=== PATIENT | male | born 1945 | race Caucasian/White ===

== ENCOUNTER → 2022-05-08 | Outpatient (CLI) | payer MEDICARE, BC ==
--- NOTE | 2022-05-08 09:45 | CT ---
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 Coronal and sagittal reconstructions performed. CT DLP: 737.20 mGycm Automated exposure control for dose reduction was used. FINDINGS: Left anterior chest wall ICD generator with right atrial and 2 right ventricular leads. Median sterno tiara wires are present with post-CABG clips. Normal variant azygos fissure. Finding seen on the facility service associate view. There is also loss of the subacromial space on both sides suggesting cortical thickness chroni c rotator cuff tears bilaterally. Mild to moderate emphysematous change in the visualized upper lungs . Mild mucosal thickening throughout the ethmoid air cells. Incidentally, there is a 1.1 x 0.6 cm soft tissue nodule in the left paramedian region just posterior and inferior to the hyoid bone, axial image 59. Recommend reassessment in 3 months to exclude an ear ly neoplasm. Possible ectopic thyroid tissue. No craniocervical junction are mildly, predental space widening, or prevertebral soft tissue swelling . Degenerative change at the C1 dens articulation. Moderate disc/endplate degenerative changes present throughout, greatest at C6-7 where disc osteophyt e complex contributes to a moderate focal spinal canal stenosis. Multilevel advanced hypertrophic facet and uncovertebral joint arthropathy is present. Degenerative grade 1, nearly grade 2 anterolisthesis C4-C5 and grade 1 anterolisthesis C5-C6. Additio nal degenerative grade 1 anterolisthesis T2-T3. At C2-C3, mild left neuroforaminal stenosis. At C3-C4, severe right and moderate left neural foraminal stenosis. At C4-C5, moderate to severe left and moderate right neuroforaminal stenosis. At C5-C6, moderate to severe right and moderate left neuroforaminal stenosis. At C6-C7, moderate to severe right and moderate left foraminal stenosis. At C7-T1, mild to moderate left neuroforaminal stenosis. At T1-T2, moderate bilateral neural foraminal stenosis. At T2-T3, moderate left neuroforaminal stenosis.. IMPRESSION: 1. MODERATE TO ADVANCED MULTILEVEL SPONDYLOTIC CHANGE THROUGHOUT. There is a grade 1, nearly grade 2 anterolisthesis at C4-C5. Additional grade 1 anterolisthesis at C5-C6 and T2-T3. 2. Moderate focal spinal canal stenosis at C6-C7 secondary to disc osteophyte complex. 3. Variable bilateral neural foraminal stenoses as outlined above. 4. Incidental findings also mentioned including a 1.1 x 0.6 cm soft tissue nodule left paramedian asp ect just posterior and inferior to the hyoid bone. Three-month follow-up CT neck recommended to exclu de early neoplasm. Possible ectopic thyroid tissue. 5. Incidental: Chronic bilateral full-thickness rotator cuff tears and underlying emphysema.
== END | disposition home or self-care (01) ==
LOC: RADCTMAIN 08:00
PROVIDERS: ATTEND Physical Medicine & Rehabilitation
DX: M47.812 Spondylosis without myelopathy or radiculopathy, cervical region (principal); M48.02 Spinal stenosis, cervical region; M43.12 Spondylolisthesis, cervical region; M50.30 Other cervical disc degeneration, unspecified cervical region
CPT/HCPCS: 72125

== ENCOUNTER 2024-07-02 19:40 | Inpatient (IN) | payer MEDICARE, BC ==
--- NOTE | 2024-07-02 19:48 | ED ---
Chest Pain HPI - General Stated Complaint: Chest Pain Time Seen by Provider: 07/02/24 19:42 Source: RN notes reviewed, old records reviewed Mode of arrival: EMS Limitations: no limitations - History of Present Illness Initial Comments: This is a 78-year-old male with a strong cardiac history coming in for severe chest pain. Patient has history of CAD with prior stents prior CABG and comes in with left-sided chest pain tightness and heaviness today. Patient feels a little lightheaded but mainly complaining of chest pain. Patient concern for EKG and history of heart disease MD Complaint: chest pain -: hour(s) Onset: during rest, during exertion Pain Location: left chest Pain Radiation: LUE Severity: moderate Severity scale (1-10): 4 Quality: tightness, heaviness Consistency: constant Improves With: nothing Worsens With: nothing Anginal Symptoms: nausea, vomiting, sense of impending doom Other Symptoms: palpitations Treatments Prior to Arrival: none - Related Data Home Medications Medication Instructions Recorded Confirmed Apixaban [Eliquis] 5 mg PO BID 07/03/24 07/03/24 Atorvastatin [Lipitor] 40 mg PO DAILY 07/03/24 07/03/24 Clopidogrel [Plavix] 75 mg PO DAILY 07/03/24 07/03/24 Omeprazole [PriLOSEC] 20 mg PO AC-BRKFST 07/03/24 07/03/24 polyethylene glycoL 3350 [Miralax] 17 gm PO BID 07/03/24 07/03/24 Previous Rx's Medication Instructions Recorded Aspirin 81 mg PO DAILY 7 Days #7 tab 07/06/24 Folic Acid 1 mg PO DAILY@1200 #30 tab 07/06/24 Isosorbide Mononitrate ER [Imdur] 30 mg PO DAILY #30 tab 07/06/24 Metoprolol Tartrate [Lopressor] 25 mg PO DAILY #30 tab 07/06/24 Multivitamins, Thera [Multivitamin 1 each PO DAILY@1200 #30 tab 07/06/24 (formulary)] Nitroglycerin Sl Tabs [Nitrostat] 0.4 mg SUBLINGUAL Q5M PRN #20 tab 07/06/24 Thiamine [Vitamin B-1] 100 mg PO BID-W/MEALS #30 tab 07/06/24 lisinopriL [Zestril] 5 mg PO DAILY #0 07/06/24 Allergies Allergy/AdvReac Type Severity Reaction Status Date / Time No Known Allergies Allergy Verified 07/03/24 15:00 Review of Systems ROS Statement: Those systems with pertinent positive or pertinent negative responses have been documented in the HPI. ROS Other: All systems not noted in ROS Statement are negative. EKG Findings - EKG Comments: EKG Findings:: EKG is sinus 91 AK 169 QRS 114 QTc 394. Patient does have evidence of ST depression anteriorly - EKG Results: EKG: interpreted by SIERRAD General Exam General appearance: anxious Head exam: Present: atraumatic, normocephalic, normal inspection Eye exam: Present: normal appearance, PERRL, EOMI. Absent: scleral icterus, conjunctival injection, periorbital swelling ENT exam: Present: normal exam, mucous membranes moist Neck exam: Present: normal inspection. Absent: tenderness, meningismus, lymphadenopathy Respiratory exam: Present: normal lung sounds bilaterally. Absent: respiratory distress, wheezes, rales, rhonchi, stridor Cardiovascular Exam: Present: regular rate, normal rhythm, normal heart sounds. Absent: systolic murmur, diastolic murmur, rubs, gallop, clicks GI/Abdominal exam: Present: soft, normal bowel sounds. Absent: distended, tenderness, guarding, rebound, rigid Extremities exam: Present: normal inspection, full ROM, normal capillary refill. Absent: tenderness, pedal edema, joint swelling, calf tenderness Back exam: Present: normal inspection Neurological exam: Present: alert, oriented X3, CN II-XII intact Psychiatric exam: Present: normal affect, normal mood Skin exam: Present: warm, dry, intact, normal color. Absent: rash Course Vital Signs 07/02/24 07/02/24 07/02/24 19:44 21:00 21:15 Temperature 97.8 F Pulse Rate 93 76 75 Pulse Rate [ Tuber Machine Operator Helper ] Respiratory 16 13 14 Rate Blood Pressure 174/79 123/69 111/66 O2 Sat by Pulse 98 97 96 Oximetry 07/02/24 07/02/24 07/02/24 21:30 21:45 22:00 Temperature Pulse Rate 75 77 73 Pulse Rate [ Tuber Machine Operator Helper ] Respiratory 13 14 16 Rate Blood Pressure 103/51 105/79 105/57 O2 Sat by Pulse 96 97 Oximetry 07/03/24 07/03/24 07/03/24 02:00 06:00 07:32 Temperature Pulse Rate 77 72 Pulse Rate [ 78 Tuber Machine Operator Helper ] Respiratory 13 16 Rate Blood Pressure 121/67 135/69 O2 Sat by Pulse 97 96 Oximetry 07/03/24 07/03/24 07/03/24 09:03 13:00 17:02 Temperature 97.8 F Pulse Rate 85 72 85 Pulse Rate [ Tuber Machine Operator Helper ] Respiratory 18 18 18 Rate Blood Pressure 146/82 129/59 139/70 O2 Sat by Pulse 98 96 97 Oximetry 07/03/24 07/03/24 07/04/24 20:00 22:13 02:35 Temperature Pulse Rate 80 80 73 Pulse Rate [ Tuber Machine Operator Helper ] Respiratory 17 18 17 Rate Blood Pressure 147/82 130/69 134/69 O2 Sat by Pulse 98 96 95 Oximetry 07/04/24 07/04/24 07/04/24 05:41 11:30 15:54 Temperature 97.9 F 97.9 F Pulse Rate 73 63 76 Pulse Rate [ Tuber Machine Operator Helper ] Respiratory 16 15 17 Rate Blood Pressure 125/68 110/56 127/84 O2 Sat by Pulse 99 97 Oximetry 07/04/24 07/05/24 07/05/24 18:12 00:36 02:00 Temperature 98.2 F Pulse Rate 74 70 71 Pulse Rate [ Tuber Machine Operator Helper ] Respiratory 15 18 18 Rate Blood Pressure 121/61 150/75 133/65 O2 Sat by Pulse 96 97 95 Oximetry 07/05/24 07/05/24 07/05/24 04:00 06:05 07:34 Temperature Pulse Rate 68 78 72 Pulse Rate [ Tuber Machine Operator Helper ] Respiratory 18 18 12 Rate Blood Pressure 155/71 175/79 157/81 O2 Sat by Pulse 95 98 100 Oximetry - Reevaluation(s) Reevaluation #1: 07/02/24 21:14 Medical records reviewed Reevaluation #2: 07/02/24 21:14 Patient symptoms unchanged Patient still with chest pain Reevaluation #3: 07/02/24 21:14 Patient informed of results questions answered Reevaluation #4: Was pt. sent in by a medical professional or institution (, PA, VERMIN EXTERMINATOR, urgent care, hospital, or penitentiary...) When possible be specific @ -no Did you speak to anyone other than the patient for history (EMS, parent, family, police, friend...)? What history was obtained from this source @ -no Did you review nursing and triage notes (agree or disagree)? Why? @ -agree Are old charts reviewed (outside hosp., previous admission, EMS record, old EKG, old radiological studies, urgent care reports/EKG's, penitentiary records)? Report findings @ -yes Differential Diagnosis (chest pain, altered mental status, abdominal pain women, abdominal pain men, vaginal bleeding, weakness, fever, dyspnea, syncope, headache, dizziness, GI bleed, back pain, seizure, CVA, palpatations, mental health, musculoskeletal)? @ -prior EKG interpreted by me (3pts min.). @ -yes X-rays interpreted by me (1pt min.). @ -yes negative for acute disease CT interpreted by me (1pt min.). @ -no U/S interpreted by me (1pt. min.). @ -no What testing was considered but not performed or refused? (CT, X-rays, U/S, labs)? Why? @ -none What meds were considered but not given or refused? Why? @ -none Did you discuss the management of the patient with other professionals (professionals i.e. , PA, VERMIN EXTERMINATOR, lab, RT, psych nurse, social science research assistant, face and fill packer, teacher, special weapons and tactics officer, lead case manager)? Give summary @ -no Was smoking cessation discussed for >3mins.? @ -no Was critical care preformed (if so, how long)? @ -yes31 Were there social determinants of health that impacted care today? How? (Homelessness, low income, unemployed, alcoholism, drug addiction, transportation, low edu. Level, literacy, decrease access to med. care, halfway, rehab)? @ -none Was there de-escalation of care discussed even if they declined (Discuss DNR or withdrawal of care, Hospice)? DNR status @ -no What co-morbidities impacted this encounter? (DM, HTN, Smoking, COPD, CAD, Cancer, CVA, ARF, Chemo, Hep., AIDS, mental health diagnosis, sleep apnea, morbid obesity)? @ -none Was patient admitted / discharged? Hospital course, mention meds given and route, prescriptions, significant lab abnormalities, going to OR and other pertinent info. @ - 78 male to ER for evaluation of chest pain positive troponin non-ST elevated AZ on heparin and aspirin, patient admit for cardiac evaluation and treatment Admitted Undiagnosed new problem with uncertain prognosis? @ -no Drug Therapy requiring intensive monitoring for toxicity (Heparin, Nitro, Insulin, Cardizem)? @ -no Were any procedures done? @ -no Diagnosis/symptom? @ -Chest pain non-ST elevated AZ Acute, or Chronic, or Acute on Chronic? @ -Acute Uncomplicated (without systemic symptoms) or Complicated (systemic symptoms)? @ -Complicated Side effects of treatment? @ -no Exacerbation, Progression, or Severe Exacerbation? @ -exacerbation Poses a threat to life or bodily function? How? (Chest pain, [place], [place], pneumonia, PE, COPD, DKA, ARF, appy, cholecystitis, CVA, Diverticulitis, Homicidal, Suicidal, threat to staff... and all critical care pts) @ -yes with chest pain extremes of age Reevaluation #5: Differential Chest Pain: Stable Angina, Unstable Angina, STEMI, NSTEMI Aortic Dissection, Pneumothorax, Musculoskeletal, Esophageal Spasm GERD, Cholecystitis, Pancreatitis, Zoster, this is not meant to be an all-inclusive list. - Consultations Consultation #1: Spoke with EM who agrees to admit this patient Consultation #2: Spoke with cardiology aware of this patient Chest Pain MDM - MDM 78 male to ER for evaluation of chest pain positive troponin non-ST elevated AZ on heparin and aspirin, patient admit for cardiac evaluation and treatment Critical Care Time Critical Care Time: Yes Total Critical Care Time: 31 Disposition Clinical Impression: Acute non-ST elevation myocardial infarction (NSTEMI), Chest pain, Unstable angina pectoris Disposition: ADMITTED IP TO THIS HOSP Condition: Serious Is patient prescribed a controlled substance at d/c from ED?: No Time of Disposition: 21:00
[2024-07-02] MEDS: NITROGLYCERIN SL TABS 0.4 MG TAB SUBLINGUAL STA (19:54)
[2024-07-02] MEDS: NITROGLYCERIN OINT 1 INCH/GM PACKET TOPICAL STA (19:54)
[2024-07-02] MEDS: SODIUM CHLORIDE 0.9% 500 ML 500 ML IV STA (20:00)
[2024-07-02 20:03] LABS: Basophils % (A) 0 %; Eosinophils # (A) 0.1 k/uL (0-0.7); Eosinophils % (A) 2 %; HCT 41.7 % (39.0-53.0); HGB 13.5 gm/dL (13.0-17.5); Lymphocytes # (A) 1.1 k/uL (1.0-4.8); Lymphocytes % (A) 14 %; MCH 27.7 pg (25.0-35.0); MCHC 32.3 g/dL (31.0-37.0); MCV 85.7 fL (80.0-100.0); Mean Platelet Volume 8.8; Monocytes # (A) 0.4 k/uL (0-1.0); Monocytes % (A) 5 %; Neutrophils # (A) 6.2 k/uL (1.3-7.7); Neutrophils % (A) 78 %; Platelet Count 160 k/uL (150-450); RBC 4.87 m/uL (4.30-5.90); RDW 14.1 % (11.5-15.5); WBC 7.9 k/uL (3.8-10.6)
[2024-07-02 20:14] LABS: INR 1.1 (<1.2); Partial Thromboplastin Time 26.1 sec (22.0-30.0); Prothrombin Time 12.4 sec (10.0-12.5)
[2024-07-02 20:19] LABS: ALT 23 U/L (4-49); AST 76 U/L (17-59); African American GFR (CKD) 66 (>60 ml/min/1.73 sqM); Alkaline Phosphatase 92 U/L (38-126); Anion Gap 9 mmol/L; Blood Urea Nitrogen 19 mg/dL (9-20); Calcium 8.7 mg/dL (8.4-10.2); Carbon Dioxide 24 mmol/L (22-30); Chloride 100 mmol/L (98-107); Glucose 110 mg/dL (74-99); Lipase 58 U/L (23-300); Non-African American GFR(CKD) 57 (>60 ml/min/1.73 sqM); Potassium 4.2 mmol/L (3.5-5.1); Sodium 133 mmol/L (137-145); Total Bilirubin 1.1 mg/dL (0.2-1.3); Total Protein 6.8 g/dL (6.3-8.2)
[2024-07-02 20:27] LABS: NT-Pro-B-Type Natriuretic Pept 1670 pg/mL
[2024-07-02] MEDS: HEPARIN SOD,PORK IN 0.45% NACL 25,000 UNIT in 0.45% NACL 1 250ML.BAG IV SCH (20:58)
[2024-07-02] MEDS: HEPARIN SODIUM 1,000 UN/ML (10ML VL) IV ONE (20:59)
--- NOTE | 2024-07-02 21:03 | XR ---
EXAMINATION TYPE: XR chest 1V portable DATE OF EXAM: 07/02/2024 8:48 PM COMPARISON: None CLINICAL INDICATION: Male, 78 years old with history of chest pain; [facility] TECHNIQUE: XR chest 1V portable Frontal view of the chest. FINDINGS: Lungs/Pleura: There is no evidence of pleural effusion, focal consolidation, or pneumothorax. Pulmonary vascularity: Unremarkable. Heart/mediastinum: Cardiomediastinal silhouette is prominent in size. 4 lead cardiac conduction devic e overlying the left hemithorax with lead tips projecting over the right ventricle, right atrium and coronary sinus. Musculoskeletal: No acute osseous pathology. Midline sternotomy wires are noted. IMPRESSION: Low lung volumes with a generalized hazy appearance which could represent atelectasis versus pulmonar y edema correlate with serum BNP. [facility], , 07/02/2024 9:01 PM
[2024-07-02] MEDS ORDERED: MORPHINE SULFATE 4 MG/ML SYRINGE IV PRN (21:24)
[2024-07-02] MEDS ORDERED: NITROGLYCERIN SL TABS 0.4 MG TAB SUBLINGUAL PRN (21:24)
[2024-07-02] MEDS: ASPIRIN 81 MG PO STA (21:27)
[2024-07-02] MEDS: NITROGLYCERIN-D5W PMX 50 MG in DEXTROSE/WATER 1 250ML.BAG IV ONE (21:28)
[2024-07-03 03:13] LABS: Basophils % (A) 0 %; Eosinophils # (A) 0.1 k/uL (0-0.7); Eosinophils % (A) 2 %; HCT 35.8 % (39.0-53.0); HGB 12.2 gm/dL (13.0-17.5); Lymphocytes # (A) 1.4 k/uL (1.0-4.8); Lymphocytes % (A) 22 %; MCH 28.9 pg (25.0-35.0); MCV 84.8 fL (80.0-100.0); Monocytes # (A) 0.5 k/uL (0-1.0); Monocytes % (A) 7 %; Neutrophils # (A) 4.3 k/uL (1.3-7.7); Neutrophils % (A) 68 %; Platelet Count 156 k/uL (150-450); RBC 4.23 m/uL (4.30-5.90); RDW 14.1 % (11.5-15.5); WBC 6.3 k/uL (3.8-10.6)
[2024-07-03 03:17] LABS: INR 1.2 (<1.2); Prothrombin Time 12.5 sec (10.0-12.5)
[2024-07-03] MEDS: METOPROLOL TARTRATE 25 MG TAB PO SCH (08:59)
[2024-07-03] MEDS: ATORVASTATIN 80 MG TAB PO SCH (08:59)
[2024-07-03] MEDS ORDERED: ASPIRIN 325 MG TAB PO SCH (09:00)
[2024-07-03] MEDS: ASPIRIN 81 MG PO SCH (09:02)
[2024-07-03 10:41] LABS: Chol/HDL Ratio 2.43 Ratio; LDL Cholesterol,Calculated 55.4 mg/dL (0.0-131.0); VLDL Calculation 7.48 mg/dL (5.00-40.00)
[2024-07-03] MEDS ORDERED: NITROGLYCERIN SL TABS 0.4 MG TAB SUBLINGUAL PRN (12:27)
--- NOTE | 2024-07-03 12:30 | P.CRDCN ---
History of Present Illness History of present illness: HISTORY OF PRESENT ILLNESS: This is a 78-year-old male with a past medical history significant for artery disease with previous CABG x 2 in [place], hypertension, and hyperlipidemia. Patient follows a human resources operations specialist in [place]. We have been asked to see the patient in consultation for chest pain. Patient examined at the bedside in the emergency room. Patient presented to the hospital with a chief complaint of chest pain. Patient states the pain was in the middle of his chest. He denied any radiation of the pain. He denied any nausea or vomiting. Denies dizziness or lightheadedness. Patient was found to have elevated troponins and was started on IV heparin and IV nitro. DIAGNOSTICS: - EKG reveals sinus mechanism with incomplete right bundle branch block. - Chest xray low lung volumes with generalized hazy appearance which could represent atelectasis versus pulmonary edema. - Laboratory data: WBC 6.3. Hemoglobin 12.2. Platelet count 156. Sodium 133. Potassium 4.2. BUN 19. Creatinine 1.20. Magnesium 2.0. Troponin 4.390. 5.200. 6.320. proBNP 1670. - Current home cardiac medication list is not updated at the time of examination - No previous echocardiogram, stress test, or cardiac catheterization available in EMR for review REVIEW OF SYSTEMS: At the time of my exam: CONSTITUTIONAL: Denies fever or chills. HEENT: Denies blurred vision, vision changes, or eye pain. Denies hemoptysis CARDIOVASCULAR: Denies chest pain. Denies orthopnea. Denies PND. Denies palpitations RESPIRATORY: Denies shortness of breath. GASTROINTESTINAL: Denies abdominal pain. Denies nausea or vomiting. HEMATOLOGIC: Denies bleeding disorders. GENITOURINARY: Denies any blood in urine. SKIN: Denies pruitis. Denies rash. PHYSICAL EXAM: VITAL SIGNS: Reviewed. GENERAL: Well-developed in no acute distress. HEENT: Head is normocephalic. Pupils are equal, round. Sclerae anicteric. Mucous membranes of the mouth are moist. Neck supple. No JVD or thyromegaly LUNGS: Respirations even and unlabored. Lungs essentially clear to auscultation bilaterally. HEART: Regular rate and rhythm. S1 and S2 heard. ABDOMEN: Soft. Nondistended. Nontender. EXTREMITIES: Normal range of motion. No clubbing or cyanosis. Peripheral pulses intact. No lower extremity edema NEUROLOGIC: Awake and alert. Oriented x 3. ASSESSMENT: NSTEMI Coronary artery disease with previous CABG x , 1993 and approximately 2007 Hypertension Hyperlipidemia PLAN: Obtain 2D echo to assess cardiac structure and function Continue IV heparin Discontinue IV nitro. Begin nitro paste Continue additional cardiac medications Obtain records from patient's previous open heart surgery N.p.o. at midnight Patient to undergo cardiac catheterization tomorrow with Dr. Cole Further recommendations pending patient course Nurse practitioner note has been reviewed by physician. Signing provider agrees with the documented findings, assessment, and plan of care documented by MARKETING RECRUITER as a scribe. Past Medical History Past Medical History: Chest Pain / Angina, Heart Failure, Hyperlipidemia, Hypertension, Myocardial Infarction ([place]) History of Any Multi-Drug Resistant Organisms: None Reported Past Surgical History: Coronary Bypass/CABG, Heart Catheterization With Stent Additional Past Surgical History / Comment(s): defibrilator Past Psychological History: No Psychological Hx Reported Smoking Status: Never smoker Past Alcohol Use History: Daily Past Drug Use History: None Reported Medications and Allergies Allergies Allergy/AdvReac Type Severity Reaction Status Date / Time No Known Allergies Allergy Verified 07/02/24 19:43 Physical Exam Vitals: Vital Signs Temp Pulse Pulse Resp BP Pulse Ox 07/03/24 07:32 78 07/03/24 06:00 72 16 135/69 96 07/03/24 02:00 77 13 121/67 97 07/02/24 22:00 73 16 105/57 07/02/24 21:45 77 14 105/79 97 07/02/24 21:30 75 13 103/51 96 07/02/24 21:15 75 14 111/66 96 07/02/24 21:00 76 13 123/69 97 07/02/24 19:44 97.8 F 93 16 174/79 98 Intake and Output 07/02/24 07/03/24 07/03/24 22:59 06:59 14:59 Intake Total 103.747 Balance 103.747 Intake: Intake, IV Titration 103.747 Amount Heparin Sod,Pork in 0.45% 103.747 NaCl 25,000 unit In 0.45 % NaCl 1 250ml.bag @ 9.3 UNITS/KG/HR 10.04 mls/hr IV .Q24H [facility] Rx#: [id number] Other: Weight 107.955 kg Results 07/03/24 02:55 07/02/24 19:44 Cardiac Enzymes 07/02/24 07/02/24 07/02/24 Range/Units 19:44 19:44 22:42 AST 76 H (17-59) U/L Troponin I 4.390 H* 5.200 H* (0.000-0.034) ng/mL 07/03/24 Range/Units 02:55 AST (17-59) U/L Troponin I 6.320 H* (0.000-0.034) ng/mL Coagulation 07/02/24 07/03/24 07/03/24 Range/Units 19:44 02:55 02:55 PT 12.4 12.5 (10.0-12.5) sec APTT 26.1 82.8 H (22.0-30.0) sec CBC 07/02/24 07/03/24 Range/Units 19:44 02:55 WBC 7.9 6.3 (3.8-10.6) k/uL RBC 4.87 4.23 L (4.30-5.90) m/uL Hgb 13.5 12.2 L (13.0-17.5) gm/dL Hct 41.7 35.8 L (39.0-53.0) % Plt Count 160 156 (150-450) k/uL Comprehensive Metabolic Panel 07/02/24 Range/Units 19:44 Sodium 133 L (137-145) mmol/L Potassium 4.2 (3.5-5.1) mmol/L Chloride 100 (98-107) mmol/L Carbon Dioxide 24 (22-30) mmol/L BUN 19 (9-20) mg/dL Creatinine 1.20 (0.66-1.25) mg/dL Glucose 110 H (74-99) mg/dL Calcium 8.7 (8.4-10.2) mg/dL AST 76 H (17-59) U/L ALT 23 (4-49) U/L Alkaline Phosphatase 92 (38-126) U/L Total Protein 6.8 (6.3-8.2) g/dL Albumin 4.0 (3.5-5.0) g/dL Current Medications Generic Name Dose Route Start Last Admin Trade Name Freq PRN Reason Stop Dose Admin Aspirin 325 mg 07/03/24 09:00 Aspirin 325 Mg Tab PO DAILY [facility] Atorvastatin Calcium 80 mg 07/03/24 09:00 Atorvastatin 80 Mg Tab PO DAILY [facility] Heparin Sodium (Porcine) 0 unit 07/02/24 20:41 Heparin Sodium 1,000 Un/Ml (10ml Vl) IV PER PROTOCOL PRN Low PTT Protocol Heparin Sodium/Sodium Chloride 250 mls @ 10.04 mls/hr 07/02/24 20:45 07/03/24 07:18 25,000 unit/ Sodium Chloride IV 7.3 units/kg/hr .Q24H [facility] 7.881 mls/hr Titration Protocol 9.3 UNITS/KG/HR Nitroglycerin/Dextrose 50 mg/ 250 mls @ 1.5 mls/hr 07/02/24 21:08 07/02/24 21:28 IV Solution IV 07/03/24 21:07 5 mcg/min .Q24H ONE 1.5 mls/hr Administration Protocol 5 MCG/MIN Metoprolol Tartrate 25 mg 07/03/24 09:00 Metoprolol Tartrate 25 Mg Tab PO BID [facility] Morphine Sulfate 4 mg 07/02/24 21:24 Morphine Sulfate 4 Mg/Ml Syringe IV Q4HR PRN Chest Pain Nitroglycerin 0.4 mg 07/02/24 21:24 Nitroglycerin Sl Tabs 0.4 Mg Tab SUBLINGUAL Q5M PRN Chest Pain Intake and Output 07/02/24 07/03/24 07/03/24 22:59 06:59 14:59 Intake Total 103.747 Balance 103.747 Intake: Intake, IV Titration 103.747 Amount Heparin Sod,Pork in 0.45% 103.747 NaCl 25,000 unit In 0.45 % NaCl 1 250ml.bag @ 9.3 UNITS/KG/HR 10.04 mls/hr IV .Q24H [facility] Rx#: [id number] Other: Weight 107.955 kg 07/03/24 02:55 07/02/24 19:44
[2024-07-03] MEDS: NITROGLYCERIN OINT 1 INCH/GM PACKET TOPICAL SCH (12:33)
--- NOTE | 2024-07-03 17:01 | CA ---
Transthoracic Echo Report Name: Shaheen Mireles Age: 78 Gender: M : 1945 Exam Date: 07/03/2024 11:31 Exam Location: [place] [facility] Ht (in): 74 Wt (lb): 238 Ordering Physician: Antwon Renee DO Attending/Referring Phys: [id number], Thelma Test Borer Karin Man RDCS Procedure CPT: Indications: elevTrop Cardiac Hx: AICD Technical Quality: Technically difficult study Contrast 1: Total Dose (mL): Contrast 2: Total Dose (mL): MEASUREMENTS (Male / Female) Normal Values 2D ECHO LV Diastolic Diameter PLAX 4.8 cm 4.2 - 5.9 / 3.9 - 5.3 cm LV Systolic Diameter PLAX 3.3 cm IVS Diastolic Thickness 1.1 cm 0.6 - 1.0 / 0.6 - 0.9 cm LVPW Diastolic Thickness 1.2 cm 0.6 - 1.0 / 0.6 - 0.9 cm LV Relative Wall Thickness 0.5 RV Internal Dim ED PLAX 3.9 cm LA Systolic Diameter LX 5.0 cm 3.0 - 4.0 / 2.7 - 3.8 cm LA Volume 112.7 cm??? 18 - 58 / 22 - 52 cm??? LA Volume Index 47.0 cm???/m??? 16 - 28 cm???/m??? M-MODE Aortic Root Diameter MM 3.1 cm DOPPLER AV Peak Velocity 224.2 cm/s AV Peak Gradient 20.1 mmHg AV Mean Velocity 156.8 cm/s AV Mean Gradient 10.8 mmHg AV Velocity Time Integral 53.9 cm AI Peak Velocity 419.5 cm/s AI Peak Gradient 70.4 mmHg AI Pressure Half Time 336.6 ms LVOT Peak Velocity 102.8 cm/s LVOT Peak Gradient 4.2 mmHg LVOT Velocity Time Integral 23.6 cm MV Area PHT 2.8 cm??? Mitral E Point Velocity 100.5 cm/s Mitral A Point Velocity 58.8 cm/s Mitral E to A Ratio 1.7 MV Deceleration Time 269.7 ms TR Peak Velocity 283.5 cm/s TR Peak Gradient 32.1 mmHg Right Ventricular Systolic Press 36.0 mmHg FINDINGS Left Ventricle Left ventricular ejection fraction is estimated at 35 %. Left ventricular cavity size normal. Left ventricular wall thickness normal. Baasel inferior akinesis. Basel septum akinesis Right Ventricle Moderate right ventricular dilatation. Mild pulmonary hypertension. Reduced right ventricular global systolic function. Right Atrium Normal right atrial size. No right atrial thrombus or mass seen. Left Atrium Moderately increased left atrial diameter. Severely increased left atrial volume. Moderately increased left atrial area. No left atrial thrombus or mass present. Mitral Valve Structurally normal mitral valve. Trace to mild mitral regurgitation. Mitral annular calcification. Aortic Valve Aortic valve sclerosis. Mild aortic stenosis with a peak gradient of 20 mmHg and a mean gradient of 11 mmHg. Mild aortic regurgitation. Tricuspid Valve Structurally normal tricuspid valve. Mild tricuspid regurgitation. Pulmonic Valve Pulmonic valve not well visualized. Pericardium No pericardial effusion. Aorta Normal size aortic root and proximal ascending aorta. CONCLUSIONS Left ventricular ejection fraction 35% with inferior, inferior lateral, basal septal akinesis RVSP 36 Moderately dilated left atrium Trace to mild mitral regurgitation Mild aortic stenosis Mild tricuspid regurgitation Previewed by: Dr. Jasen Wong DO (Electronically Signed) Final Date: 03 July 2024 17:01
[2024-07-03] MEDS: polyethylene glycoL 3350 17 GM POWD.PACK PO SCH (20:28)
--- NOTE | 2024-07-04 00:08 | HP ---
HISTORY AND PHYSICAL CHIEF COMPLAINT: Chest pain. HISTORY OF PRESENT ILLNESS: This is a 78-year-old gentleman with a past medical history of CAD, CABG, extensive cardiac history, multiple caths, being followed by Dr. 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 The initial EKG showed some ST depressions. The lab work showed troponin elevated up to 6.320 indicating acute ogw-YS-htxuxli elevation myocardial infarction and the patient was also seen by Cardiology and the patient is being closely monitored. There is no history of any fever, rigors, or chills at this time. PAST MEDICAL HISTORY: History of CAD, CABG, history of CHF, hypertension, hyperlipidemia, history of chest pain, stent. Rest of the history and rest of the chart is also reviewed. ALLERGIES: None. FAMILY HISTORY: No history of heart disease or strokes in the family. SOCIAL HISTORY: Daily alcohol. No history of smoking. REVIEW OF SYSTEMS: Fourteen-point review of systems is negative except as mentioned earlier. PHYSICAL EXAMINATION: VITAL SIGNS: Pulse 85, blood pressure 143/84, respirations 18. HEENT: Conjunctivae normal. NECK: No JVD. CARDIOVASCULAR: S1, S2. RESPIRATIONS: Breath sounds diminished at the bases. No rhonchi. No crackles. ABDOMEN: Soft, nontender. LEGS: No edema. NERVOUS SYSTEM: Nonfocal. LABORATORY STUDIES: Hemoglobin 12.2. Rest of the labs are noted. ASSESSMENT: 1. Chest pain, possible acute pco-KJ-yebprug elevation myocardial infarction. 2. Troponin elevated up to 6.320. 3. History of coronary artery disease, coronary artery bypass graft stents. 4. Hypertension. 5. Hyperlipidemia. 6. History of congestive heart failure. RECOMMENDATIONS AND DISCUSSION: This is a 78-year-old gentleman, who presented with multiple complex medical issues, we will monitor the patient closely. Continue with antiplatelet agents. Continue with IV heparin. 2D echo with Doppler, beta blockers. Closely follow with Cardiology. Resume the home medications. Guarded prognosis. Further recommendations to follow. N.p.o. and possible cardiac cath tomorrow per Cardiology. MMODL / IJN: [id number] /
[2024-07-04] MEDS: ATORVASTATIN 80 MG TAB PO ONE (05:32)
[2024-07-04] MEDS: ASPIRIN 325 MG TAB PO ONE (05:32)
[2024-07-04] MEDS: ALPRAZolam 0.25 MG TAB PO PRN (05:32)
[2024-07-04] MEDS ORDERED: HEPARIN SODIUM,PORCINE (1 ML) 2,500 UNIT in SODIUM CHLORIDE 0.9% 250 ML IRRIGATION PRN (07:00)
[2024-07-04] MEDS ORDERED: HEPARIN SODIUM,PORCINE 10,000 UNIT in SODIUM CHLORIDE 0.9% 1,000 ML IRRIGATION PRN (07:00)
[2024-07-04] MEDS: lisinopriL 10 MG TAB PO SCH (09:52)
--- NOTE | 2024-07-04 11:46 | P.PN ---
Subjective HISTORY OF PRESENT ILLNESS: This is a 78-year-old male with a past medical history significant for artery disease with previous CABG x 2 in [place], hypertension, and hyperlipidemia. 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 We have been asked to see the patient in consultation for chest pain. Patient examined at the bedside in the emergency room. Patient presented to the hospital with a chief complaint of chest pain. Patient states the pain was in the middle of his chest. He denied any radiation of the pain. He denied any nausea or vomiting. Denies dizziness or lightheadedness. Patient was found to have elevated troponins and was started on IV heparin and IV nitro. DIAGNOSTICS: - EKG reveals sinus mechanism with incomplete right bundle branch block. - Chest xray low lung volumes with generalized hazy appearance which could r epresent atelectasis versus pulmonary edema. - Laboratory data: WBC 6.3. Hemoglobin 12.2. Platelet count 156. Sodium 133. Potassium 4.2. BUN 19. Creatinine 1.20. Magnesium 2.0. Troponin 4.390. 5.200. 6.320. proBNP 1670. - Current home cardiac medication list is not updated at the time of examination - No previous echocardiogram, stress test, or cardiac catheterization available in EMR for review 07/04/2024 Patient examined this morning at the bedside in the emergency room. Patient is confused this morning and does have a drug safety specialist at the bedside. Patient was not confused yesterday when we evaluated him. He denies any chest pain or shortness of breath. Echocardiogram completed revealing ejection fraction 35% with basal inferior akinesis and basal septal akinesis. The patient does report daily alcohol use of 1-2 drinks per day. Records obtained from patient's previous laboratory mechanic helper, Dr. Ferreira in [place]. Patient underwent cardiac catheterization in 2016. Findings included left main normal. Right dominant coronary circulation. LDA 100% occluded proximally. Left circumflex is without significant disease. First marginal branch is occluded. Right coronary is 100% occluded proximally. Left ventricular function is mildly impaired with ejection fraction 50%. Left ventricular inferior wall is severely hypokinetic. LV EDP 11. His vein bypass graft to LAD is patent. 0% narrowing of this graft. The proximately placed stent is patent without restenosis. Vein graft to first marginal branch circumflex is patent with a 30 to 40% ostial/proximal narrowing with in-stent restenosis and 50% mid narrowing. PHYSICAL EXAM: VITAL SIGNS: Reviewed. GENERAL: Well-developed in no acute distress. HEENT: Head is normocephalic. Pupils are equal, round. Sclerae anicteric. Mucous membranes of the mouth are moist. Neck supple. No JVD or thyromegaly LUNGS: Respirations even and unlabored. Lungs essentially clear to auscultation bilaterally. HEART: Regular rate and rhythm. S1 and S2 heard. ABDOMEN: Soft. Nondistended. Nontender. EXTREMITIES: Normal range of motion. No clubbing or cyanosis. Peripheral pulses intact. No lower extremity edema NEUROLOGIC: Awake and alert. Oriented x 3. ASSESSMENT: NSTEMI Coronary artery disease with previous CABG x 1993 and approximately 2007 Altered mental status Ischemic cardiomyopathy, ejection fraction 35%. Hypertension Hyperlipidemia Daily alcohol use PLAN: Continue IV heparin Continue additional cardiac medications Due to patient's new confusion, cardiac catheterization will be canceled for today. Primary medicine to further investigate altered mental status Patient to undergo cardiac catheterization when he is medically stable Further recommendations pending patient course Nurse practitioner note has been reviewed by physician. Signing provider agrees with the documented findings, assessment, and plan of care documented by WEBSPHERE PORTAL ARCHITECT as a scribe. Objective - Vital Signs Vital signs: Vital Signs Temp 97.8 F 07/03/24 09:03 Pulse 73 07/04/24 05:41 Resp 16 07/04/24 05:41 BP 125/68 07/04/24 05:41 Pulse Ox 95 07/04/24 02:35 FiO2 Intake & Output 07/03/24 07/04/24 07/04/24 18:59 06:59 18:59 Intake Total 103.747 98.907 Balance 103.747 98.907 Weight 107.955 kg Intake: Intake, IV Titration 103.747 98.907 Amount Heparin Sod,Pork in 0.45% 103.747 98.907 NaCl 25,000 unit In 0.45 % NaCl 1 250ml.bag @ 9.3 UNITS/KG/HR 10.04 mls/hr IV .Q24H [facility] Rx#: [id number] - Labs CBC & Chem 7: 07/03/24 02:55 07/02/24 19:44 Labs: Abnormal Lab Results - Last 24 Hours (Table) 01/20/25 Range/Units 13:13 APTT 45.8 H (22.0-30.0) sec
[2024-07-04 12:19] LABS: Basophils % (A) 0 %; Eosinophils # (A) 0.1 k/uL (0-0.7); Eosinophils % (A) 2 %; HCT 37.7 % (39.0-53.0); HGB 12.4 gm/dL (13.0-17.5); Lymphocytes # (A) 0.9 k/uL (1.0-4.8); Lymphocytes % (A) 14 %; MCH 28.7 pg (25.0-35.0); MCV 86.8 fL (80.0-100.0); Mean Platelet Volume 9.1; Monocytes # (A) 0.5 k/uL (0-1.0); Monocytes % (A) 7 %; Neutrophils # (A) 5.1 k/uL (1.3-7.7); Neutrophils % (A) 76 %; Platelet Count 150 k/uL (150-450); RBC 4.34 m/uL (4.30-5.90); RDW 14.2 % (11.5-15.5); WBC 6.7 k/uL (3.8-10.6)
[2024-07-04 12:48] LABS: African American GFR (CKD) >90 (>60 ml/min/1.73 sqM); Anion Gap 7 mmol/L; Blood Urea Nitrogen 13 mg/dL (9-20); Calcium 8.7 mg/dL (8.4-10.2); Carbon Dioxide 22 mmol/L (22-30); Chloride 101 mmol/L (98-107); Glucose 98 mg/dL (74-99); Non-African American GFR(CKD) 84 (>60 ml/min/1.73 sqM); Potassium 4.1 mmol/L (3.5-5.1); Sodium 130 mmol/L (137-145)
--- NOTE | 2024-07-04 15:16 | CT ---
EXAMINATION TYPE: CT brain wo con DATE OF EXAM: 07/04/2024 2:57 PM COMPARISON: None. CLINICAL INDICATION: Male, 78 years old with history of ams, ams TECHNIQUE: CT of the brain is performed utilizing 3 mm thick sections through the posterior fossa and 3 mm thick sections through the remaining calvarium. Study is performed within 24 hours of arrival to the hospital. Contrast used: mL of , (none if empty) CT DLP: 1168.8 mGycm, Automated exposure control for dose reduction was used. FINDINGS: No abnormal hyperdensity is present to suggest an acute intracranial hemorrhage. No mass lesion is evident. No acute infarcts are evident. Mild periventricular white matter hypodensity is present, likely on th e basis of chronic white matter ischemic changes. Ventricles and sulci are appropriate for the patient age. Paranasal sinuses and mastoid air cells within the bbbxu-wn-qrop are clear. IMPRESSION: 1. No acute intracranial process. Follow up MRI can be performed as clinically indicated. 2. Mild chronic appearing periventricular white matter ischemic change. [facility], , 07/04/2024 3:13 PM
[2024-07-04] MEDS: HEPARIN SODIUM 1,000 UN/ML (10ML VL) IV PRN (15:49)
[2024-07-04] MEDS ORDERED: HALOPERIDOL LACTATE 5 MG/ML 1 ML VIAL IVP PRN (16:21)
[2024-07-04] MEDS: THIAMINE 100 MG TAB PO SCH (18:25)
[2024-07-04 18:37] LABS: Appearance,Urine Clear (Clear); Bilirubin,Urine Negative (Negative); Blood,Urine Negative (Negative); Color,Urine Light Yellow; Glucose,Urine (UA) Negative (Negative); Ketones,Urine Negative (Negative); Leukocyte Esterase,Urine Negative (Negative); Nitrite,Urine Negative (Negative); PH, Urine 6.5 (5.0-8.0); Protein,Urine Negative (Negative); Specific Gravity,Urine 1.009 (1.001-1.035)
[2024-07-04] MEDS: QUEtiapine 25 MG TAB PO SCH (20:40)
[2024-07-04] MEDS ORDERED: QUEtiapine 25 MG TAB PO SCH (21:00)
[2024-07-05] MEDS: ALPRAZolam 0.5 MG TAB PO PRN (01:36)
--- NOTE | 2024-07-05 02:35 | PN ---
PROGRESS NOTE DATE OF SERVICE: 07/04/2024 SUBJECTIVE: This is a 78-year-old gentleman, who was admitted with chest pain, acute non ST-segment elevation myocardial infarction, is mildly confused today. No chest pain. No palpitation. Cardiology is following the patient for possible cardiac catheterization today. A 2D echo with Doppler showed ejection fraction 35% with inferolateral and basal hypokinesis. No chest pain or palpitation. PAST MEDICAL HISTORY: Reviewed. REVIEW OF SYSTEMS: A 14-point review is negative except as mentioned earlier. CURRENT MEDICATIONS: Reviewed. PHYSICAL EXAMINATION: VITAL SIGNS: Pulse is 63, blood pressure 110/53, respirations 15. HEENT: Conjunctivae normal. NECK: No JVD. CARDIOVASCULAR: S1, S2. RESPIRATIONS: Diminished at the bases. No rhonchi. No crackles. ABDOMEN: Soft. NERVOUS SYSTEM: Nonfocal. LABORATORY DATA: Hemoglobin 12.4, sodium 130. Rest of the labs are noted. ASSESSMENT: 1. Chest pain, possible acute gyx-UJ-zlhdwgz elevation myocardial infarction. 2. Ejection fraction 35% with 2D echo. 3. Troponin elevated up to 6.320. 4. Confusion, possible acute delirium. 5. History of coronary artery disease, coronary artery bypass graft stents. 6. Hypertension. 7. Hyperlipidemia. 8. History of congestive heart failure. RECOMMENDATIONS AND DISCUSSION: I recommend to continue current medications, continue symptomatic treatment. Otherwise, I would recommend CT scan of the brain. Neurology consultation. Closely follow with Cardiology. I would also recommend repeat labs, possible cardiac cath with Cardiology. Prognosis guarded. Discussed with son at the bedside. Further recommendations to follow. See orders for further details. MMODL / IJN: [id number] /
[2024-07-05 06:21] LABS: Basophils % (A) 0 %; Eosinophils # (A) 0.1 k/uL (0-0.7); Eosinophils % (A) 2 %; HCT 40.4 % (39.0-53.0); HGB 13.3 gm/dL (13.0-17.5); Lymphocytes # (A) 1.3 k/uL (1.0-4.8); Lymphocytes % (A) 19 %; MCH 28.6 pg (25.0-35.0); MCHC 32.9 g/dL (31.0-37.0); Mean Platelet Volume 8.6; Monocytes # (A) 0.6 k/uL (0-1.0); Monocytes % (A) 9 %; Neutrophils # (A) 4.4 k/uL (1.3-7.7); Neutrophils % (A) 68 %; Platelet Count 135 k/uL (150-450); RBC 4.65 m/uL (4.30-5.90); WBC 6.5 k/uL (3.8-10.6)
[2024-07-05 06:30] LABS: Glucose,Whole Blood 98 mg/dL (70-110)
[2024-07-05 06:51] LABS: African American GFR (CKD) >90 (>60 ml/min/1.73 sqM); Anion Gap 8 mmol/L; Blood Urea Nitrogen 11 mg/dL (9-20); Calcium 8.9 mg/dL (8.4-10.2); Carbon Dioxide 26 mmol/L (22-30); Chloride 100 mmol/L (98-107); Glucose 92 mg/dL (74-99); Non-African American GFR(CKD) 84 (>60 ml/min/1.73 sqM); Potassium 4.2 mmol/L (3.5-5.1); Sodium 134 mmol/L (137-145)
[2024-07-05] MEDS ORDERED: HEPARIN SODIUM,PORCINE 10,000 UNIT in SODIUM CHLORIDE 0.9% 1,000 ML IRRIGATION PRN (07:00)
[2024-07-05] MEDS ORDERED: HEPARIN SODIUM,PORCINE (1 ML) 2,500 UNIT in SODIUM CHLORIDE 0.9% 250 ML IRRIGATION PRN (07:00)
[2024-07-05] MEDS: PANTOPRAZOLE 40 MG TABLET PO SCH (08:48)
[2024-07-05] MEDS: METOPROLOL TARTRATE 25 MG TAB PO SCH (08:49)
[2024-07-05] MEDS: ATORVASTATIN 80 MG TAB PO SCH (08:49)
[2024-07-05] MEDS: ASPIRIN 81 MG PO SCH (08:49)
[2024-07-05] MEDS ORDERED: NITROGLYCERIN SL TABS 0.4 MG TAB SUBLINGUAL PRN (09:07)
[2024-07-05] MEDS ORDERED: ALPRAZolam 0.5 MG TAB PO PRN (09:07)
[2024-07-05] MEDS ORDERED: ALPRAZolam 0.25 MG TAB PO PRN (09:07)
--- NOTE | 2024-07-05 09:14 | P.PN ---
Subjective HISTORY OF PRESENT ILLNESS: This is a 78-year-old male with a past medical history significant for artery disease with previous CABG x 2 in [place], hypertension, and hyperlipidemia. 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 We have been asked to see the patient in consultation for chest pain. Patient examined at the bedside in the emergency room. Patient presented to the hospital with a chief complaint of chest pain. Patient states the pain was in the middle of his chest. He denied any radiation of the pain. He denied any nausea or vomiting. Denies dizziness or lightheadedness. Patient was found to have elevated troponins and was started on IV heparin and IV nitro. DIAGNOSTICS: - EKG reveals sinus mechanism with incomplete right bundle branch block. - Chest xray low lung volumes with generalized hazy appearance which could r epresent atelectasis versus pulmonary edema. - Laboratory data: WBC 6.3. Hemoglobin 12.2. Platelet count 156. Sodium 133. Potassium 4.2. BUN 19. Creatinine 1.20. Magnesium 2.0. Troponin 4.390. 5.200. 6.320. proBNP 1670. - Current home cardiac medication list is not updated at the time of examination - No previous echocardiogram, stress test, or cardiac catheterization available in EMR for review 07/04/2024 Patient examined this morning at the bedside in the emergency room. Patient is confused this morning and does have a director of safety at the bedside. Patient was not confused yesterday when we evaluated him. He denies any chest pain or shortness of breath. Echocardiogram completed revealing ejection fraction 35% with basal inferior akinesis and basal septal akinesis. The patient does report daily alcohol use of 1-2 drinks per day. Records obtained from patient's previous clothespin drier operator, Dr. Ferreira in [place]. Patient underwent cardiac catheterization in 2016. Findings included left main normal. Right dominant coronary circulation. LDA 100% occluded proximally. Left circumflex is without significant disease. First marginal branch is occluded. Right coronary is 100% occluded proximally. Left ventricular function is mildly impaired with ejection fraction 50%. Left ventricular inferior wall is severely hypokinetic. LV EDP 11. His vein bypass graft to LAD is patent. 0% narrowing of this graft. The proximately placed stent is patent without restenosis. Vein graft to first marginal branch circumflex is patent with a 30 to 40% ostial/proximal narrowing with in-stent restenosis and 50% mid narrowing. 07/05/2024 Patient examined at the bedside in the emergency room. Patient's son is present. Patient remains confused although improved from yesterday. He believes that he is in [place] somewhere. He is no longer requiring a director of safety. Vital signs are stable. PHYSICAL EXAM: VITAL SIGNS: Reviewed. GENERAL: Well-developed in no acute distress. HEENT: Head is normocephalic. Pupils are equal, round. Sclerae anicteric. Mucous membranes of the mouth are moist. Neck supple. No JVD or thyromegaly LUNGS: Respirations even and unlabored. Lungs essentially clear to auscultation bilaterally. HEART: Regular rate and rhythm. S1 and S2 heard. ABDOMEN: Soft. Nondistended. Nontender. EXTREMITIES: Normal range of motion. No clubbing or cyanosis. Peripheral pulses intact. No lower extremity edema NEUROLOGIC: Awake and alert. ASSESSMENT: NSTEMI Coronary artery disease with previous CABG x 1993 and approximately 2007 Altered mental status Ischemic cardiomyopathy, ejection fraction 35%. Hypertension Hyperlipidemia Daily alcohol use PLAN: Stop IV heparin Continue current cardiac medications Patient will undergo cardiac catheterization today with Dr. Cole Further recommendations pending patient course Nurse practitioner note has been reviewed by physician. Signing provider agrees with the documented findings, assessment, and plan of care documented by DATA PROCESSING SYSTEMS PROJECT PLANNER as a scribe. Objective - Vital Signs Vital signs: Vital Signs Temp 98.2 F 07/04/24 18:12 Pulse 72 07/05/24 07:34 Resp 12 07/05/24 07:34 BP 157/81 07/05/24 07:34 Pulse Ox 100 07/05/24 07:34 FiO2 Intake & Output 07/04/24 07/05/24 07/05/24 18:59 06:59 18:59 Intake Total 157.751 102.657 53.611 Output Total 400 Balance 157.751 102.657 -346.389 Intake: Intake, IV Titration 157.751 102.657 53.611 Amount Heparin Sod,Pork in 0.45% 157.751 102.657 53.611 NaCl 25,000 unit In 0.45 % NaCl 1 250ml.bag @ 9.3 UNITS/KG/HR 10.04 mls/hr IV .Q24H [facility] Rx#: [id number] Output: Urine 400 - Labs CBC & Chem 7: 07/05/24 05:41 07/05/24 05:41 Labs: Abnormal Lab Results - Last 24 Hours (Table) 07/04/24 07/04/24 07/04/24 Range/Units 11:51 11:51 22:25 Hgb 12.4 L (13.0-17.5) gm/dL Hct 37.7 L (39.0-53.0) % Plt Count (150-450) k/uL Lymphocytes # 0.9 L (1.0-4.8) k/uL APTT 71.1 H (22.0-30.0) sec Sodium 130 L (137-145) mmol/L 07/05/24 07/05/24 07/05/24 Range/Units 05:41 05:41 05:41 Hgb (13.0-17.5) gm/dL Hct (39.0-53.0) % Plt Count 135 L (150-450) k/uL Lymphocytes # (1.0-4.8) k/uL APTT 40.8 H (22.0-30.0) sec Sodium 134 L (137-145) mmol/L
[2024-07-05] MEDS: IV FLUID CONTINUATION 1,000 ML IV ONE (09:38)
[2024-07-05] MEDS: fentaNYL (PF) 50 MCG/ML 2 ML AMP IVP ONE ×2 (10:18→11:15)
[2024-07-05] MEDS: LIDOCAINE 1% INJ 10MG/ML (20 ML MDV) SQ ONE (10:19)
[2024-07-05] MEDS: MIDAZOLAM 2 MG/2 ML VIAL IVP ONE (10:21)
[2024-07-05] MEDS: HEPARIN SODIUM,PORCINE 10,000 UNIT in SODIUM CHLORIDE 0.9% 1,000 ML IRRIGATION ONE (10:22)
[2024-07-05] MEDS: HEPARIN SODIUM,PORCINE (1 ML) 2,500 UNIT in SODIUM CHLORIDE 0.9% 250 ML IRRIGATION ONE (10:22)
[2024-07-05] MEDS: IOPAMIDOL-370 100ML BTL INJ ONE ×2 (10:35→12:14)
[2024-07-05] MEDS: HEPARIN SODIUM 1,000 UN/ML (10ML VL) IVP ONE ×3 (10:58→11:59)
[2024-07-05] MEDS: niCARdipine 25 MG/10 ML VIAL INTRACORON ONE (11:17)
[2024-07-05] MEDS: niCARdipine Syringe (1,000 mcg/10 mL) INTRACORON ONE (11:57)
[2024-07-05] MEDS ORDERED: ZOLPIDEM 5 MG TAB PO PRN (12:22)
[2024-07-05] MEDS ORDERED: ATROPINE SULFATE 0.1 MG/ML 10ML SYRINGE IV PRN (12:22)
[2024-07-05] MEDS ORDERED: RX INFO: IV CONTRAST WAS GIVEN 1 EACH MISC MISCELLANE PRN (12:22)
[2024-07-05] MEDS ORDERED: MAG HYDROX/AL HYDROX/SIMETH 30 ML CUP PO PRN (12:22)
--- NOTE | 2024-07-05 12:23 | CC ---
CARDIAC CATHETERIZATION REPORT INDICATION: Non ST-segment elevation OR in a patient with known coronary artery disease, status post prior bypass surgery x2. Most recent bypass surgery involved venous graft to LAD and OM. PROCEDURE NOTE: After obtaining informed consent, left heart catheterization, coronary angiogram and selective injection of the bypass grafts was performed via the right femoral artery using standard Tomas catheters. The patient tolerated the procedure well without any obvious immediate complications. Total sedation time was 23 minutes. FINDINGS: 1. HEMODYNAMICS: Left ventricular end-diastolic pressure is 14 to 16 mm. There is no significant gradient across the aortic valve. 2. LEFT VENTRICULOGRAM: Left ventriculogram is not performed. 3. ANGIOGRAPHIC DATA: a.Right coronary artery: Right coronary artery is totally occluded in its proximal portion. Left main divides into circumflex coronary artery and left anterior descending coronary artery. LAD is occluded proximally. The OM branch coming up the circumflex coronary artery appears occluded. b.Selective injection of the bypass graft: Venous graft to the OM branch appears patent. There is a focal 95% stenosis, which is probably responsible for the patient's myocardial infarction. Venous graft to the LAD also appears patent. There is a focal 80% stenosis noted. CONCLUSIONS: [place] 3-vessel coronary artery disease with patent venous graft to the LAD and OM with focal severe stenosis involving both the grafts. PLAN: Angiographic data was reviewed by Dr. Medrano, the on-call automotive parts clerk, who will perform angioplasty above the venous grafts. MMODL / IJN: [id number] /
--- NOTE | 2024-07-05 12:40 | CDI ---
Documentation Clarification Form Date: 07/05/2024 12:22:11 PM From: Judy Patterson RN CCDS Phone: [phone] Admit Date: 07/02/2024 09:25:00 PM Patient Name: Shaheen Mireles Visit Number: [id number] Discharge Date: ATTENTION: The Clinical Documentation Specialists (CDI) and [facility] Coding Staff appreciate your assistance in clarifying documentation. Please respond to the clarification below the line at the bottom and electronically sign. The CDI & [facility] Coding staff will review the response and follow-up if needed. Please note: Queries are made part of the Legal Health Record. If you have any questions, please contact the author of this message via ITS. Doctor: Grant Blankenship Your patient has the documented diagnosis of unspecified CHF 07/03, HP. Additional information regarding the type, acuity of CHF is requested. History/Risk Factors: 78 year old male presents to the ED for severe chest pain. Medical History: CAD with prior stents, prior CABG, HTN, CHF and HLD. 07/03, H/P. Clinical Indicators: VS/Pulse OX, 07/02: B/P 174/79, HR 93, Temp 97.8F Oral, RR 16, SpO2 98% ra BNP, 07/02: 1670 Echocardiogram Results, 07/03: Left ventricular EF 35% with inferior lateral, basal septal akinesis. RVSP 36, Moderately dilated left atrium, Trace to mild mitral regurgitation, Mild aortic stenosis, Mild tricuspid regurgitation. Chest X Ray, 07/02: Low lung volumes with a generalized hazy appearance which could represent atelectasis vs pulmonary edema. Home medications : Toprol Xl 25mg po daily Treatment: 07/03 07/04 Lopressor 25mg po bid 07/05 Lopressor 25mg po daily, In your professional opinion, can you please clarify the [acuity and type] of CHF if known? [ ] Chronic Systolic Heart Failure (reduced EF) [ ] Other, please specify [ ] Unable to determine (Template Last Revised: July 2020) Unable to determine MTDD
--- NOTE | 2024-07-05 14:58 | P.PCN ---
Date of Procedure: 07/05/24 Operative Findings: PERCUTANEOUS CORONARY INTERVENTION Performing physician Damián Medrano M.D. Procedure Performed: 1. Successful stenting of the SVG to LAD using 5.0 x 23 mm Xience drug-eluting stent with an excellent angiographic results. 2. Successful stending of the SVG to OM 5.0 x 15 and 4.0 x 12 mm and 4.0 x 12 mm Xience drug-eluting stent with an excellent angiographic result. 3. Adjunctive use of IVUS and lithotripsy balloon Indication: 78-year-old gentleman who was admitted to the hospital with ongoing chest discomfort. He underwent a heart catheterization by Dr. Cole and was found to have critical disease involving the SVG to LAD and SVG to OM. The decision was made toward percutaneous coronary intervention Approach: Right common femoral artery Complications: None Level of Sedation: Moderate with a sedation length of 62 minutes Procedure Discussion: Please refer to diagnostic heart catheterization was performed earlier. Anticoagulation was initiated using heparin with continuous ACT monitoring. Subsequently I did engage the SVG to LAD using an AL 1 guiding catheter. Subsequently the old wire was advanced to the distal part of the SVG toward the LAD. After that IVUS was performed and showed a diameter around 5 mm with a very calcified vessel. I did predilatation using 3.5 x 15 mm NC balloon before I did lithotripsy balloon and that was 4.0 x 12 mm. After that I was able to advance a 5.0 x 23 mm Xience DENNIS where the stent was positioned under fluoroscopy guidance and deployed under fluoroscopy guidance. Final angiogram showed excellent angiographic results and the procedure was completed with no complication on the SVG to LAD. Subsequently the AL-1 guiding catheter was advanced toward the SVG to OM. Again that was wired using the whisper wire and run-through wire. I did IVUS but the IVUS catheter would not be able to cross the ostial of the SVG to OM. There was extremely calcified lesion appears to be very tight as well. I did predilatation using 3 mm x 15 mm balloon before I did do lithotripsy balloon and that was the same balloon was used on the SVG to LAD and that was 4.0 x 12 mm balloon. After that attempting advancing the stent was unsuccessful in spite of using GuideLiner. Then predilatation of the ostial of the SVG to OM was performed using lithotripsy balloon. I did use GuideLiner and with that I was able to advance to the mid portion of the SVG to OM 4.0 x 12 mm Xience DENNIS where the stent was positioned under fluoroscopy guidance and deployed under fluoroscopy guidance. For the proximal/ostial SVG to OM I was able to advance 5.0 x 15 mm stent where the stent again was positioned under fluoroscopy guidance and deployed under fluoroscopy guidance. An angiogram was performed and showed a hazy lesion involving the distal edge of the stent in the mid body of the graft. I did IVUS again and that showed possible edge dissection. With that I decided to cover with a stent. I was able to advance a 4.0 x 15 mm stent where the stent was positioned under fluoroscopy guidance with adjunctive use of GuideLiner and the stent was deployed and subsequently the overlap was dilated using the stent balloon. Final angiogram showed excellent angiographic results and the procedure was performed with no complication Postprocedure Management: 1. Dual antiplatelet therapy using aspirin and Plavix for at least 12 months 2. Aggressive cholesterol control 3. Risk factors modification
[2024-07-05] MEDS: ASPIRIN 325 MG TAB PO STA (16:29)
[2024-07-05] MEDS: SODIUM CHLORIDE 0.9% 1,000 ML in EMPTY BAG 1 BAG IV SCH (16:30)
[2024-07-05] MEDS: MULTIVITAMINS, THERA 1 EACH TAB PO SCH (16:34)
[2024-07-05] MEDS: FOLIC ACID 1 MG TAB PO SCH (16:34)
[2024-07-05] MEDS: ATORVASTATIN 80 MG TAB PO STA (21:14)
--- NOTE | 2024-07-06 01:59 | PN ---
PROGRESS NOTE DATE OF SERVICE: 07/05/2024 SUBJECTIVE: This is a 78-year-old gentleman, who was admitted with acute umg-AK-ehfsgko-elevation myocardial infarction for cardiac catheterization and was found to have graft stenosis. The patient underwent stenting. No chest pain. No palpitation. Also, had mild delirium also. The patient is mildly confused. PAST MEDICAL HISTORY: Reviewed. REVIEW OF SYSTEMS: A 14-point review of systems is negative. CURRENT MEDICATIONS: Reviewed. PHYSICAL EXAMINATION: VITAL SIGNS: Pulse 72, blood pressure 147/81, respirations 20. HEENT: Conjunctivae normal. CARDIOVASCULAR: S1, S2. RESPIRATIONS: Breath sounds diminished at the bases. ABDOMEN: Soft. NERVOUS SYSTEM: Nonfocal. LABORATORY DATA: Sodium 134. ASSESSMENT: 1. Chest pain, possible acute upo-EO-dxkzbxb elevation myocardial infarction with status post cardiac catheterization and stenting of the graft stenosis. 2. Ejection fraction of 35% with a 2D echo. 3. Troponin elevated up to 6.320. 4. Confusion, possible acute delirium, stable. 5. History of coronary artery disease, coronary artery bypass graft stents. 6. Hypertension. 7. Hyperlipidemia. 8. History of congestive heart failure. RECOMMENDATIONS: Recommend to continue current management and continue symptomatic treatment. Otherwise, continue with dual antiplatelet treatment. Closely follow with Cardiology. CT brain noted. Guarded prognosis because of multiple complex medical issues and further recommendations to follow. MMODL / IJN: [id number] /
[2024-07-06 05:39] VITALS: RESP 16
[2024-07-06 05:57] LABS: Glucose,Whole Blood 91 mg/dL (70-110)
[2024-07-06 06:28] LABS: Basophils % (A) 0 %; Eosinophils # (A) 0.1 k/uL (0-0.7); Eosinophils % (A) 1 %; HCT 35.7 % (39.0-53.0); HGB 11.7 gm/dL (13.0-17.5); Lymphocytes # (A) 0.7 k/uL (1.0-4.8); Lymphocytes % (A) 10 %; MCH 28.2 pg (25.0-35.0); MCHC 32.8 g/dL (31.0-37.0); MCV 86.1 fL (80.0-100.0); Mean Platelet Volume 8.9; Monocytes # (A) 0.5 k/uL (0-1.0); Monocytes % (A) 8 %; Neutrophils # (A) 5.6 k/uL (1.3-7.7); Neutrophils % (A) 80 %; Platelet Count 158 k/uL (150-450); RBC 4.15 m/uL (4.30-5.90); RDW 14.5 % (11.5-15.5); WBC 7.1 k/uL (3.8-10.6)
[2024-07-06 06:40] LABS: African American GFR (CKD) >90 (>60 ml/min/1.73 sqM); Anion Gap 8 mmol/L; Blood Urea Nitrogen 11 mg/dL (9-20); Calcium 8.5 mg/dL (8.4-10.2); Carbon Dioxide 23 mmol/L (22-30); Chloride 101 mmol/L (98-107); Glucose 96 mg/dL (74-99); Non-African American GFR(CKD) 83 (>60 ml/min/1.73 sqM); Sodium 132 mmol/L (137-145)
[2024-07-06] MEDS: CLOPIDOGREL 75 MG TAB PO SCH (08:06)
[2024-07-06 08:14] VITALS: TEMP 97.8
--- NOTE | 2024-07-06 08:47 | XR ---
EXAMINATION TYPE: XR chest 1V portable DATE OF EXAM: 07/06/2024 CLINICAL HISTORY: Difficulty breathing and CHF progress study. TECHNIQUE: Single AP portable upright view of the chest is obtained. COMPARISON: Chest x-ray from 4 days earlier FINDINGS: Overlying sternal wires and mediastinal clips are redemonstrated. Cardiac silhouette size is stable and upper limits of normal with multilead pacemaker/defibrillator redemonstrated. Right mid lung and Left basilar opacities are redemonstrated. Osseous structures are intact. IMPRESSION: Persistent right midlung and left lower lung acute infiltrates and/or atelectasis. [facility], , 07/06/2024 8:44 AM
--- NOTE | 2024-07-06 10:18 | P.CNNES ---
History of Present Illness Consult date: 07/05/24 Requesting physician: Eryn Gutierrez Reason for Consult: Altered mental status History of Present Illness: Patient is a 78-year-old male came to the hospital by ambulance 3 days ago, on 07/02/2024 at 7:40 PM for left-sided chest pain. Patient states that he came to the hospital because he was having pressure in the left side of the chest and left arm was hurting and he was concerned about cardiac cause. He has history of 2 open heart surgeries. Patient was getting cardiac workup in the hospital. Apparently he was noted to be somewhat confused, therefore neurology consultation was initiated. At present patient is fully oriented. I spoke to patient's son, who provided with a history. He states that patient came to the hospital on Wednesday night. Next day on Wednesday he was fine. On Wednesday at 8 AM, he was slightly disoriented which prompted cancellation of the cardiac catheterization. Patient's son got upset, as he was otherwise perfectly fine, and slight disorientation is not unusual for him and he believes that patient had slight hospital delirium. Patient was slightly mumbling in his dreams but snapped out of it right away. Patient's son states that he has been somewhat depressed, as his daughter 3 years ago. Also his 3 months ago. Patient did not have any strokelike symptoms, slurred speech, facial droop problem with the vision or any other focal symptoms. Patient states that he lives by himself, does not use any assistive device. His memory is otherwise fine. Patient's vitals at the scene was blood pressure 183/102, which came down to 112/97. Saturation 100%, respirations 16, blood sugar 176. Patient was fully oriented. EMS flowsheet is available, but no narrative available in the sheet. Vital signs on arrival blood pressure 170/79, which came down to 123/69, pulse 93 temperature 97.8. EKG showed sinus rhythm with sinus arrhythmia. Chest x-ray showed low lung volumes with a generalized hazy appearance which could represent atelectasis versus pulmonary edema correlate with serum BNP. CT head revealed no acute intracranial process. Mild chronic appearing periventricular white matter ischemic change. I personally reviewed CT head, agree with the findings. Visualized paranasal sinuses are mostly clear. 2D echo revealed LVEF is 35% with inferior, inferior lateral and basal septal akinesis. Moderately dilated left atrium. Trace to mild MR. Mild . Home medications include Eliquis 5 mg twice daily, Plavix 75 mg, Lipitor 40 mg, lisinopril 10 mg, metoprolol and omeprazole. Patient drinks couple vodka with 7-Up but denies getting drunk. 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 Review of Systems All pertinent positive and negative mentioned HPI, otherwise complete unremarkable. Past Medical History Past Medical History: Chest Pain / Angina, Heart Failure, Hyperlipidemia, Hypertension, Myocardial Infarction (AR) Last Myocardial Infarction Date:: 2007 History of Any Multi-Drug Resistant Organisms: None Reported Past Surgical History: Coronary Bypass/CABG, Heart Catheterization With Stent Additional Past Surgical History / Comment(s): defibrilator Past Anesthesia/Blood Transfusion Reactions: No Reported Reaction Date of Last Stent Placement:: unknown Past Psychological History: No Psychological Hx Reported Smoking Status: Never smoker Past Alcohol Use History: Daily Past Drug Use History: None Reported Medications and Allergies Home Medications Medication Instructions Recorded Confirmed Type Apixaban [Eliquis] 5 mg PO BID 07/03/24 07/03/24 History Atorvastatin [Lipitor] 40 mg PO DAILY 07/03/24 07/03/24 History Clopidogrel [Plavix] 75 mg PO DAILY 07/03/24 07/03/24 History Metoprolol Succinate (ER) [Toprol 25 mg PO DAILY 07/03/24 07/03/24 History Xl] Omeprazole [PriLOSEC] 20 mg PO AC-BRKFST 07/03/24 07/03/24 History lisinopriL [Zestril] 10 mg PO DAILY 07/03/24 07/03/24 History polyethylene glycoL 3350 [Miralax] 17 gm PO BID 07/03/24 07/03/24 History Allergies Allergy/AdvReac Type Severity Reaction Status Date / Time No Known Allergies Allergy Verified 07/03/24 15:00 Physical Examination - Vital Signs Vital Signs: Vital Signs Temp Pulse Resp BP Pulse Ox 07/05/24 07:34 72 12 157/81 100 07/05/24 06:05 78 18 175/79 98 07/05/24 04:00 68 18 155/71 95 07/05/24 02:00 71 18 133/65 95 07/05/24 00:36 70 18 150/75 97 07/04/24 18:12 98.2 F 74 15 121/61 96 07/04/24 15:54 97.9 F 76 17 127/84 97 07/04/24 11:30 97.9 F 63 15 110/56 99 Intake and Output 07/04/24 07/05/24 07/05/24 22:59 06:59 14:59 Intake Total 14.054 102.657 53.611 Output Total 400 Balance 14.054 102.657 -346.389 Intake: Intake, IV Titration 14.054 102.657 53.611 Amount Heparin Sod,Pork in 0.45% 14.054 102.657 53.611 NaCl 25,000 unit In 0.45 % NaCl 1 250ml.bag @ 9.3 UNITS/KG/HR 10.04 mls/hr IV .Q24H [facility] Rx#: [id number] Output: Urine 400 Patient is an elderly male, very pleasant, in no acute distress. Patient has just arrived from cardiac catheterization. The nursing staff were present, trying to put pressure on the groin to prevent bleeding. Patient is alert awake oriented to time place and person. He knows his age, and it is June and the year is 2024 and it is Wednesday. He knows that he is in [facility] in [place] and name of the current president Mr. Singh. Speech and language functions are normal. Patient can name and repeat very well. No aphasia or dysarthria. Attention, concentration and fund of knowledge is adequate. On cranial nerve examination, pupils are equal, round and reacting to light, visual desouza are full on confrontation, with no neglect on double simultaneous stimulation. Extraocular muscles are intact with no nystagmus. Face is symmetric, tongue protrudes to the midline. Palatal elevation and sensation normal, hearing and shoulder shrug normal, facial sensation normal. On muscle strength testing, there is no pronator drift and the strength is normal in arms and legs distally and proximally, except left deltoid which is weak from shoulder issues.. Deep tendon reflexes are symmetric trace all over and plantars downgoing. Sensory to touch is equal with no neglect on double simultaneous stimulation. Cerebellar function showed no ataxia for [id number]-[id number] testing. No d ysdiadochokinesia. No ataxia for mycf-kc-[id number] testing on either side. Tone and bulk of muscles normal. Patient has mild tremors of outstretched hands. Gait deferred.. On general examination, there is no carotid bruit or murmur, S1-S2 audible. Chest is clear on consultation. Abdomen is soft nontender. No organomegaly, bowel sounds present. Peripheral pulses are present. No peripheral edema. Results - Laboratory Findings CBC and BMP: 07/06/24 05:46 07/06/24 05:46 Abnormal Lab Findings: Abnormal Labs 07/02/24 07/02/24 07/02/24 19:44 19:44 22:42 RBC Hgb Hct Plt Count Lymphocytes # INR APTT Sodium 133 L Glucose 110 H AST 76 H Troponin I 4.390 H* 5.200 H* 07/03/24 07/03/24 07/03/24 02:55 02:55 02:55 RBC 4.23 L Hgb 12.2 L Hct 35.8 L Plt Count Lymphocytes # INR 1.2 H APTT 82.8 H Sodium Glucose AST Troponin I 07/03/24 07/03/24 07/04/24 02:55 13:13 11:51 RBC Hgb 12.4 L Hct 37.7 L Plt Count Lymphocytes # 0.9 L INR APTT 45.8 H Sodium Glucose AST Troponin I 6.320 H* 07/04/24 07/04/24 07/05/24 11:51 22:25 05:41 RBC Hgb Hct Plt Count Lymphocytes # INR APTT 71.1 H Sodium 130 L 134 L Glucose AST Troponin I 07/05/24 07/05/24 05:41 05:41 RBC Hgb Hct Plt Count 135 L Lymphocytes # INR APTT 40.8 H Sodium Glucose AST Troponin I Assessment and Plan Assessment: * Mild disorientation, likely due to hospital delirium. There were no associated focal symptoms. Current examination completely normal. * Hypertension * Non-STEMI * Coronary artery disease * Ischemic cardiomyopathy * Hyperlipidemia * Alcohol use Plan: * Patient had transient confusion/disorientation, likely due to hospital delirium. There were no associated focal symptoms. * Continue aspirin, Plavix. Patient was on Eliquis, but currently on hold, as patient is currently on heparin drip. Cardiology following. * 2D echo revealed LVEF 35% with inferior, inferior lateral, basal septal akinesis. Moderately dilated left atrium. Trace to mild MR. Mild AAS. * We will check carotid Doppler, rule out carotid stenosis. * Lipid panel with cholesterol 107, LDL 55, HDL 44, triglycerides 37. Lipids are well-controlled, no need to increase dose to 80 mg. We will resume Lipitor 40 mg daily (home dosing). * Check B12, A1c. * Continue thiamine, folic acid. * Neurologically, we will follow clinically. Thank you for the consult.
--- NOTE | 2024-07-06 10:59 | PN ---
PROGRESS NOTE SUBJECTIVE: Shaheen is a 78-year-old gentleman, who was admitted to hospital with non ST-segment elevation GA and on a cardiac catheterization, was found to have critical stenosis involving venous graft to LAD and OM, and underwent angioplasty with drug-eluting stent placements of both including lithotripsy. This morning, he is doing well and is free of symptoms. He denies chest pain or difficulty in breathing. An echocardiogram on this admission revealed an ejection fraction of 35% with evidence of prior inferior wall myocardial infarction. MEDICATIONS: He is on, 1. Aspirin. 2. Lipitor. 3. Plavix. 4. Zestril. 5. Nitroglycerin paste. 6. Protonix. 7. Seroquel. PHYSICAL EXAMINATION: VITAL SIGNS: On exam, heart rate is 83 beats per minute, blood pressure is 93/50, respiratory rate is 18. CHEST: Reveals good air entry bilaterally. HEART: Reveals first and second heart sounds. No gallop. Has a systolic murmur at the left lower sternal border. ABDOMEN: Soft. EXTREMITIES: Did not reveal any edema. Peripheral pulses are felt. LABORATORY DATA: Labs show a hemoglobin of 11.7, platelet count is 158, potassium is 4, creatinine is 0.8. ASSESSMENT AND PLAN: Acute non ST-segment elevation myocardial infarction, status post catheterization and angioplasty of the venous graft to left anterior descending and obtuse marginal. The patient is doing well. We will decrease the dose of Zestril to 5 mg daily, stop the nitroglycerin paste and start him on Imdur given the mild hypotension. He is stable for discharge from cardiac standpoint and resume the Eliquis on discharge. We will stop the aspirin after a week and continue the Plavix and Eliquis. MMODL / IJN: [id number] /
[2024-07-06 11:07] VITALS: BMI 30.5
--- NOTE | 2024-07-06 11:09 | US ---
EXAMINATION TYPE: US carotid duplex BILAT DATE OF EXAM: 07/06/2024 COMPARISON: NONE CLINICAL INDICATION: Male, 78 years old with history of Transient confusion, rule out TIA; TIA patien t states had surgery on both carotid arteries years ago. Additional History: .... TECHNIQUE: Grayscale, color Doppler and spectral Doppler evaluation of the bilateral carotid systems and vertebral arteries. Indirect Doppler criteria was utilized. 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 Color Doppler imaging shows patency with blood flow throughout the carotid artery. Spectral waveforms are within normal limits. 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 Left: Less than 50% stenosis of the carotid bifurcation. Advise CTA or MRA of the neck follow-up to further evaluate likely significant stenosis in the proxim al right internal carotid artery. Criteria for Assigning % of Stenosis / Diameter reduction (Estimation based on the indirect measurements of the internal carotid artery velocities (ICA PSV). 1. Normal (no stenosis)=ICA PSV < 125 cm/s: ratio < 2.0: ICA EDV<40 cm/s. 2. Less than 50% stenosis=ICA PSV < 125 cm/s: ratio < 2.0: ICA EDV<40 cm/s. 3. 50 to 69% stenosis=ICA PSV of 125 to 230 cm/s: ration 2.0 ? 4.0: ICA EDV 40-100 cm/s. 4. Greater than 70% stenosis to near occlusion= ICA PSV > 230 cm/s: ratio > 4.0: ICA EDV > 100 cm/s. 5. Near occlusion= ICA PSV velocities may be low or undetectable: variable ratio and ICA EDV. 6. Total occlusion=unable to detect flow. [facility], , 07/06/2024 11:07 AM
[2024-07-06] MEDS: ISOSORBIDE MONONITRATE ER 30 MG TAB.ER.24H PO SCH (12:14)
[2024-07-06] MEDS: APIXABAN 5 MG TAB PO SCH (12:14)
[2024-07-06 12:19] VITALS: BP 101/59; PULSE 67
[2024-07-07] MEDS ORDERED: ATORVASTATIN 40 MG TAB PO SCH (09:00)
[2024-07-07] MEDS ORDERED: lisinopriL 5 MG TAB PO SCH (09:00)
--- NOTE | 2024-07-10 09:52 | P.DS ---
Providers Date of admission: 07/02/24 21:25 Expected date of discharge: 07/06/24 Attending physician: Grant Blankenship Consults: 07/02/24 21:24 Consult Physician Urgent Consulting Provider: Julee Enriquez Consult Reason/Comments: nstemi Do you want consulting provider notified?: Yes 07/04/24 13:56 Consult Physician Urgent Consulting Provider: Duy Rivera Consult Reason/Comments: altered mental status Do you want consulting provider notified?: Yes 07/05/24 12:22 Consult Physician Routine Consulting Provider: [facility] Consult Reason/Comments: Post Interventional Patient Do you want consulting provider notified?: Already Contacted Primary care physician: Maddy Perdue Hospital Course: Final diagnosis Chest pain, acute NSTEMI status postcardiac catheterization with stenting of the graft stenosis Ischemic cardiomyopathy, EF of 35% Troponin elevated 6.320 on admission Confusion, likely acute hospital-acquired delirium, improved History of coronary artery disease with CABG and stenting in the past Hypertension Hyperlipidemia Obesity with a BMI of 30.6 GI prophylaxis DVT prophylaxis Full code Discharge disposition Patient is being discharged in a stable condition with guarded prognosis to home . Patient will follow-up with Dr. Perdue in the outpatient setting upon discharge. Patient is to continue with current antidual platelet and also close outpatient follow-up with cardiology as scheduled. Total time taken is greater than 35 minutes. Hospital course This is a 78-year-old male who was recently admitted with chest pain, noted to h ave elevated troponin and EF of 35% with ischemic cardiomyopathy status post cardiac catheterization with re-stenting of the graft stenosis of the SVG to LAD. Patient reports to feeling well and has been cleared by cardiology for discharge. Patient will be going home. Please refer to cardiology notes for further HPI. Patient will need outpatient follow-up with cardiology this week. Continue antidual platelet on discharge. Currently no reports of chest pain, shortness of breath, or palpitations. Patient is afebrile. No reports of nausea or vomiting and patient is tolerating diet. Patient will be discharged home today. Guarded prognosis and high risk for readmissions Physical exam: Gen: This is a 78-year-old male who is awake, alert and oriented x 3, well- developed, elderly appearing, obese HEENT: Head is atraumatic, normocephalic. Pupils equal, round. Sclerae is anicteric. NECK: Supple. No JVD. No lymphadenopathy. No thyromegaly. LUNGS: Diminished breath sounds bilaterally otherwise clear to auscultation. No wheezes or rhonchi. No intercostal retractions. HEART: S1, S2 are muffled ABDOMEN: Soft. Bowel sounds are present. No masses. No tenderness. EXTREMITIES: No pedal edema. No calf tenderness. NEUROLOGICAL: Patient is awake, alert and oriented x3. Cranial nerves 2 through 12 are grossly intact. Please refer to medication reconciliation sheet for a list of medications. The impression and plan of care has been dictated by Eryn Gutierrez, Nurse Practitioner as directed. Dr. Krzysztof MD I have performed a history and examination and MDM of this patient, discussed the same with the dictator, and agree with the dictator's assessment and plan as written ,documented as a scribe. Based on total visit time, I have performed more than 50% of the visit. Patient Condition at Discharge: Fair Plan - Discharge Summary Discharge Rx Participant: No New Discharge Prescriptions: New Aspirin 81 mg PO DAILY 7 Days #7 tab Folic Acid 1 mg PO DAILY@1200 #30 tab Isosorbide Mononitrate ER [Imdur] 30 mg PO DAILY #30 tab Metoprolol Tartrate [Lopressor] 25 mg PO DAILY #30 tab Multivitamins, Thera [Multivitamin (formulary)] 1 each PO DAILY@1200 #30 tab Nitroglycerin Sl Tabs [Nitrostat] 0.4 mg SUBLINGUAL Q5M PRN #20 tab PRN Reason: Chest Pain Thiamine [Vitamin B-1] 100 mg PO BID-W/MEALS #30 tab Continue Omeprazole [PriLOSEC] 20 mg PO AC-BRKFST Apixaban [Eliquis] 5 mg PO BID Clopidogrel [Plavix] 75 mg PO DAILY Atorvastatin [Lipitor] 40 mg PO DAILY polyethylene glycoL 3350 [Miralax] 17 gm PO BID Changed lisinopriL [Zestril] 5 mg PO DAILY #0 Discontinued Metoprolol Succinate (ER) [Toprol Xl] 25 mg PO DAILY Discharge Medication List Apixaban [Eliquis] 5 mg PO BID 07/03/24 [History] Atorvastatin [Lipitor] 40 mg PO DAILY 07/03/24 [History] Clopidogrel [Plavix] 75 mg PO DAILY 07/03/24 [History] Omeprazole [PriLOSEC] 20 mg PO AC-BRKFST 07/03/24 [History] polyethylene glycoL 3350 [Miralax] 17 gm PO BID 07/03/24 [History] Aspirin 81 mg PO DAILY 7 Days #7 tab 07/06/24 [Rx] Folic Acid 1 mg PO DAILY@1200 #30 tab 07/06/24 [Rx] Isosorbide Mononitrate ER [Imdur] 30 mg PO DAILY #30 tab 07/06/24 [Rx] Metoprolol Tartrate [Lopressor] 25 mg PO DAILY #30 tab 07/06/24 [Rx] Multivitamins, Thera [Multivitamin (formulary)] 1 each PO DAILY@1200 #30 tab 07/06/24 [Rx] Nitroglycerin Sl Tabs [Nitrostat] 0.4 mg SUBLINGUAL Q5M PRN #20 tab 07/06/24 [Rx] Thiamine [Vitamin B-1] 100 mg PO BID-W/MEALS #30 tab 07/06/24 [Rx] lisinopriL [Zestril] 5 mg PO DAILY #0 07/06/24 [Rx] Follow up Appointment(s)/Referral(s): Maddy Perdue MD [Primary Care Provider] - 1-2 days Patient Instructions/Handouts: *Surgery [facility] - After Heart Catheterization - [employer] Instructions Activity/Diet/Wound Care/Special Instructions: Activity limited until follow-up Follow-up with primary care provider on discharge Follow-up with primary cardiology this week Continue with medications as prescribed Cardiology recommending continuing aspirin for 1 week and then discontinue and continue with Eliquis and Plavix indefinitely. This should also be discussed with your primary utility clerk Continue heart healthy diet Discharge Disposition: HOME SELF-CARE
== END 2024-07-06 13:54 | disposition home or self-care (01) | DRG 323 ==
LOC: EC 19:40 → 3SCARD 21:25
PROVIDERS: ADMIT Hospitalist; ATTEND Hospitalist
PROC: B2111ZZ Fluoroscopy of Multiple Coronary Arteries using Low Osmolar Contrast (ICD-10-PCS; 2024-07-05)
PROC: B2131ZZ Fluoroscopy of Multiple Coronary Artery Bypass Grafts using Low Osmolar Contrast (ICD-10-PCS; 2024-07-05)
PROC: B2181ZZ Fluoroscopy of Left Internal Mammary Bypass Graft using Low Osmolar Contrast (ICD-10-PCS; 2024-07-05)
PROC: 027036Z Dilation of Coronary Artery, One Artery with Three Drug-eluting Intraluminal Devices, Percutaneous Approach (ICD-10-PCS; principal; 2024-07-05 12:10)
PROC: 02F13ZZ Fragmentation in Coronary Artery, Two Arteries, Percutaneous Approach (ICD-10-PCS; 2024-07-05 12:10)
PROC: 02703ZZ Dilation of Coronary Artery, One Artery, Percutaneous Approach (ICD-10-PCS; 2024-07-05 12:10)
PROC: 4A023N7 Measurement of Cardiac Sampling and Pressure, Left Heart, Percutaneous Approach (ICD-10-PCS; 2024-07-05 12:10)
PROC: B241ZZ3 Ultrasonography of Multiple Coronary Arteries, Intravascular (ICD-10-PCS; 2024-07-05 12:10)
DX: T82.855A Stenosis of coronary artery stent, initial encounter (principal); I21.4 Non-ST elevation (NSTEMI) myocardial infarction; F05 Delirium due to known physiological condition; I11.0 Hypertensive heart disease with heart failure; I65.22 Occlusion and stenosis of left carotid artery; I25.810 Atherosclerosis of coronary artery bypass graft(s) without angina pectoris; E78.5 Hyperlipidemia, unspecified; I50.9 Heart failure, unspecified; G25.0 Essential tremor; Z95.1 Presence of aortocoronary bypass graft; I25.5 Ischemic cardiomyopathy; R41.82 Altered mental status, unspecified; I45.10 Unspecified right bundle-branch block; I25.2 Old myocardial infarction; Z79.01 Long term (current) use of anticoagulants; Z79.02 Long term (current) use of antithrombotics/antiplatelets; Z79.899 Other long term (current) drug therapy
CPT/HCPCS: 36415; 70450; 71045; 80048; 80053; 80061; 81003; 82607; 83036; 83690; 83735; 83880; 84484; 85025; 85610; 85730; 92972; 92978; 93005; 93306; 93459; 93880; 94760; 96365; 96366; 96368; 99291